=== PATIENT | male | born 1955 | race Caucasian/White ===

== ENCOUNTER → 2018-08-07 | Outpatient (CLI) | payer MEDICARE, BC ==
[~2018-08-07] MED LIST: AMI200 PO; ASC500 PO; ATOR-1 PO; ATOR20TA65 PO; BACDS PO; CALC500T76 PO; CALCIUM; DABI150C3 PO; DILT240C84 PO; DOCU-416 PO; DRON400T4 PO; FERR325C2 PO; GABA-533 PO; GLUC500C29 PO; GLUCOSAMINE; IBU200 PO; LEVO112T43 PO; LEVO75TA73 PO; LOR5/325 PO; META-1 PO; METH4TAB57 PO; MULT1CAP41 PO; MULT1CAP59 PO; PAN40 PO; PER PO; SERT25TA87 PO; SOTA120T25 PO; SUC1 PO; TIZA-128 PO; TRAM-420 PO; VITA200C39 PO; VITAMIN C; VITAMIN E; WARF5TAB23 PO; WARF7.5T26 PO; [UNRECOGNIZED DRUG - CODE] GT; [UNRECOGNIZED DRUG - CODE] MC
== END ==
LOC: US 02:17
PROVIDERS: ATTEND Internal Medicine Cardiovascular Disease
DX: I07.1 Rheumatic tricuspid insufficiency (principal)
CPT/HCPCS: 93306

== ENCOUNTER → 2018-12-11 | Outpatient (CLI) | payer MEDICARE, BC ==
--- NOTE | 2018-12-11 13:55 | RADIOLOGY IMAGING REPORT ---
FACILITY: [facility] PATIENT NAME: Alfonso Aguilar : 1955 MR: [id number] V: [id number] EXAM DATE: ORDERING PHYSICIAN: MIRANDA GONZALES TECHNOLOGIST: Location: [facility] - [place] Patient: Alfonso Aguilar : 1955 Visit/Account:[id number] Date of Sevice: 12/11/2018 Exam type: L-SPINE 2 OR 3 VIEW History: Low back pain Comparison: August 18, 2012. Findings: Three views were submitted. Period there are five lumbar type vertebral bodies present. There is no evidence of acute fractures or subluxations. There are large left lateral osteophytes at L2-3. The re is mild disc space narrowing throughout the entire lumbar spine from L1 to S1 T12 is incompletely imaged on the lateral view although there suggestion of mild loss of height. There are also marginal osteophytes at T12-L1 and at the incompletely imaged T11-T12 on the AP view IMPRESSION: 1. 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 If dalton reyes's symptoms persist MR may be helpful Report Dictated By: Keila Moe MD at 12/11/2018 1:45 PM Report E-Signed By: Keila Moe MD at 12/11/2018 1:48 PM WSN:AURE
== END ==
LOC: RAD 09:40
PROVIDERS: ATTEND Family Medicine
DX: M25.78 Osteophyte, vertebrae (principal)
CPT/HCPCS: 72100